=== PATIENT | female | born 1980 | race Caucasian/White ===

== ENCOUNTER 2025-06-18 10:55 | Outpatient (AMB) | payer OTHER, SELFPAY ==
--- NOTE | 2025-06-18 11:17 | AM.OFFWIN_ITS ---
Intake Vital Signs 06/18/25 11:18 Height 5 ft 7 in Weight 212 lb BMI 33.2 BP 132/84 Blood Pressure Location Lt brachial Position Sitting Pulse 85 Pulse Source Pulse Oximeter Temp 98.3 F Temp Source Oral Pulse Oximetry (%) 100 Oxygen Delivery Method Room Air Intake Visit Reasons: [employer] - HS underneath armpit Intake Note: pt presents with HS flare under right armpit x3 wks- h/o HS Allergies codeine Allergy (Intermediate, Verified 06/18/25 11:19) Nausea and Vomiting Do you need a note to return to daycare/school/sports/work: No HPI HPI Comments History of Present Illness Details History of Present Illness - The patient is a 45-year-old female pr esenting with a flare-up of Hidradenitis Suppurativa. - The patient has a long-standing histor y of Hidradenitis Suppurativa, with the current flare-up lasting for three weeks. - The flare-up is characterized by multi ple draining lesions on under both arms, with one lesion significantly increasing in size. - The patient has been on Bimzelx, havin g completed five out of nine doses, with no significant improvement noted yet. - Previous treatment included a seven-da y course of doxycycline, which ended recently. - The patient reports allergic reactions to adhesives, requiring the use of specific bandages for sensitive skin. - The patient experiences significant pa in and has been using ibuprofen and Tylenol for pain management. - The patient has not pursued surgical o ptions due to work commitments and concerns about recovery time. 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 - She has constant burning sharp pain in under the arm pits and has some drainage. - She had some improvement with the Doxy cycline but it was only for 7 days and she thinks that she needs a longer course. - She denies fever, chills, CP, SOB, or bleeding. Physical Exam General: Cooperative, healthy appearing, comfortable, no acute distress but tearful Orientation: Patient oriented x3 Respiratory: Normal respiratory effort and able to speak in complete sentences. Clear to auscultation bilaterally Cardiovascular: Regular rate and rhythm. Normal S1 and S2 Skin: Multiple scars noted in the axilla bilaterally. Open areas noted in the right axilla with some drainage noted and some tissue. Small open area with greenish drainage on the left axilla. No warmth, erythema or odor noted. Neuro: Sensation is intact. Extremities: Normal to inspection. Pain with ROM of the arms bilaterally. Patient was informed and verbally consented to the use of an ambient scribe for clinic note documentation during this visit. Review of Systems Const All systems reviewed & are unremarkable except as noted in HPI and below Physical Exam Vital Signs: Last Vital Signs Temp 98.3 F 06/18/25 11:18 Pulse 85 06/18/25 11:18 BP 132/84 06/18/25 11:18 Pulse Ox 100 06/18/25 11:18 Oxygen Delivery Method Room Air 06/18/25 11:18 BMI result Body Mass Index 33.2 Assessment & Plan Assessment & Plan (1) Hidradenitis suppurativa: Code(s): L73.2 - Hidradenitis suppurativa Plan Most likely Hidradenitis Suppurativa plan - Continue Bimzelx treatment as planned, monitoring for any improvement or adverse effects. - Prescribe Bactroban ointment for topical application to aid in reducing bacterial load and promoting healing. - Prscribed doxycycline for 10 days for ongoing management of infection risk. - Discuss potential referral to a specialized clinic for further management if c urrent treatments do not yield improvement. - gabapentin TID for pain - continue with tylenol or motrin as needed - follow up with PCP and derm Medications: New doxycycline hyclate 100 mg PO BID 20 tabs 0RF 10 days mupirocin 2% 1 appl topical TID 22 grams 0RF gabapentin 100 mg PO TID 42 caps 0RF 14 days Coding Level of Care Code Est Pt Level 3 (49032) Diagnoses Hidradenitis suppurativa L73.2
[2025-06-18 11:18] VITALS: BP 132/84; PULSE 85; TEMP 36.8; O2SAT 100; BMI 33.2
--- OUTSIDE RECORDS SUMMARY | 2025-06-18 13:19 | XMS_ITS | Clinical Summary ---
Author Organization [facility] Address [address] [place] [address] Phone Care Team Providers Care Liquid Chlorine Operator Name Role Phone Meenu Loera MD Primary Care Provider [phone] Allergies Active Allergy Reactions Criticality Noted Date Comments Codeine Nausea And Vomiting 04/01/2017 Medications ibuprofen (ADVIL,MOTRIN) 600 mg tablet Take 1 Tablet by mouth every 8 hours as needed for Pain. 3 Active levonorgestreL (MIRENA) 21 mcg/24 hr (8 yrs) 52 mg IUD by Intrauterine route. Active metFORMIN XR (GLUCOPHAGE-XR) 500 mg 24 hr tablet Take 1 tablet (500 mg total) by mouth 1 (one) time each day. Active spironolactone (ALDACTONE) 50 mg tablet Take 1 Tablet by mouth 3 times daily. Active Cosentyx UnoReady Pen 300 mg/2 mL pen injector 5 Active cholecalciferol (VITAMIN D-3) 50 mcg (2,000 unit) capsule Take 1 capsule (2,000 Units total) by mouth 1 (one) time each day. 5 Active fluticasone propionate (FLONASE) 50 mcg/actuation nasal spray Administer 1 spray into each nostril 2 (two) times a day. Shake gently. Before first use, prime pump. After use, clean tip and replace cap. 48 g 5 Active cetirizine (ZyrTEC) 10 mg tablet Take 1 tablet (10 mg total) by mouth 1 (one) time each day. 90 tablet 5 Active Active Problems Problem Noted Date Diagnosed Date COVID-19 virus infection 10/25/2020 Hidradenitis suppurativa 04/01/2017 Overview (07/06/2024): Mainly in axillae, some in groins/under breasts. On Cosentyx through Dr. Nj Immunizations Name Administration Dates Next Due Moderna Covid-19 Bivalent, O riginal + Ba.1 (Non-US Tradename Spikevax Bivalent) 10/28/2022 Sailogy SARS-CoV-2 COVID-19, mRNA, LNP-S, preservative free 02/03/2022 Tdap Tetanus diptheria acell ular pertussis (Boostrix; Adacel) 7yo and older 02/28/2024,11/07/2007 Surgical History Surgery Date Site/Laterality Comments CHOLECYSTECTOMY 2002 PROCEDURE: HISTORICAL CHOLECYSTECTOMY OTHER SURGICAL HISTORY 09/10/2011 Right PROCEDURE: CA OPTX TIBIAL SHFT FX W/PLATE/SCREWS W/WO CERCLAGE OVARIAN CYST REMOVAL 03/22/2017 Left PROCEDURE: CA OVARIAN CYSTECTOMY UNI/BI SALPINGOOPHORECTOMY 03/22/2017 Left PROCEDURE: CA LAPAROSCOPY W/RMVL ADNEXAL STRUCTURES; [place] [facility] [place] Medical History Medical History Date Comments Hydradenitis DX:Hydradenitis; COMMENT: L breast scars Eczema DX:Eczema Obesity DX:Obesity Family History Medical History Relation Name Comments Hypertension Father diverticulitis Pancreatic cancer Maternal Grandfather Dementia Maternal Grandmother Hypertension Mother thyroid Breast cancer Paternal Grandmother Colon cancer Neg Hx Ovarian cancer Neg Hx Relation Name Status Comments Father Alive Maternal Grandfather Maternal Grandmother Mother Alive Paternal Grandfather Alive Paternal Grandmother Alive Social History Tobacco Use Types Packs/Day Years Used Date Smoking Tobacco: Every Day Cigarettes Smokeless Tobacco: Never Tobacco Cessation:Ready to Q uit: Not Asked; Counseling Given: Not Answered Alcohol Use Standard Drinks/Week Comments Not Asked 0 (1 standard drink = 0.6 oz pur e alcohol) Housing Instability Answer Date Recorde d Are you worried that in the next 2 months you may not have stable housing? No 01/11/2025 Food Access & Nutrition Answer Date Rec orded Do you have access to a vari ety of food including fruits and vegetables? Yes 01/11/2025 Health Literacy Answer Date Recorded How often do you need to hav e someone help you when you read instructions, pamphlets, or other written material from your doctor or pharmacy? Never 01/11/2025 Caregiver: How often do you need to have someone help you when you read instructions, pamphlets, or other written material from your doctor or pharmacy? Not on file 01/11/2025 Financial Risk Answer Date Recorded How hard is it for you to pa y for the very basics like food, housing, medical care, and air conditioning / heating? Not very hard 01/11/2025 Transportation Answer Date Recorded Has the lack of transportati on kept you from meetings, work, or from getting things needed for daily living? No Has the lack of transportati on kept you from medical appointments or from getting medications? No 01/11/2025 Social Isolation Answer Date Recorded How often do you feel lonely or isolated from th ose around you? Never 01/11/2025 Food Risk Answer Date Recorded Within the past 12 months we worried whether our food would run out before we got money to buy more. Never true 01/11/2025 Within the past 12 months th e food we bought just didn't last and we didn't have money to get more. Never true 01/11/2025 Dependent Care Answer Date Recorded Do you need help finding or paying for care for your loved ones. For example, home child care provider or elderly care for an older adult? No 01/11/2025 Education Answer Date Recorded Do you think completing more education or training, like finishing a GED, going to college, or learning a trade, would be helpful for you? No 01/11/2025 Employment and Income Answer Date Recor ded During the last four weeks, have you been actively looking for work? Yes 01/11/2025 Living Situation Answer Date Recorded What is your living situation? 0 01/11/2025 Comments Unknown Sex and Gender Information Value Date Recorded Sex Assigned at Female 12/03/2024 2:17 PM EST Legal Sex Female 9:39 PM EST Gender Identity Female 12/03/2024 2:17 PM EST Sexual Orientation Not on file Obstetrics History Last Filed Vital Signs Vital Sign Reading Time Taken Comments Blood Pressure 116/64 01/15/2025 3:36 PM EDT Pulse 94 01/15/2025 3:36 PM EDT Temperature 36.3 C (97.4 F) 01/15/2025 3:36 PM EDT Respiratory Rate 16 01/15/2025 3:36 PM EDT Oxygen Saturation 97% 01/15/2025 3:36 PM EDT Inhaled Oxygen Concentration - - Weight 99.3 kg (219 lb) 01/15/2025 3:36 PM EDT Height 170.2 cm (5' 7 ) 01/15/2025 3:36 PM EDT Body Mass Index 34.3 01/15/2025 3:36 PM EDT Plan of Treatment Upcoming Encounters Date Type Department Care Team (Late st Contact Info) Description 07/11/2025 11:00 AM EDT Office Visit Adult Medicine [facility] [address] [place] [address] Cindy Lugo PA [address] [place] [address] Health Maintenance Due Date Last Done Comments Breast Cancer Screening 1979 Hepatitis B Vaccines (1 of 3 - 19+ 3-dose series) 1998 Pneumococcal Vaccine: Pediatrics (0 to 5 Years) and At-Risk Patients (6 to 49 Years) (1 of 2 - PCV) 1998 Colorectal Cancer Screening: Colonoscopy 09/12/2022 HIV Screening 09/12/2022 Cervical Cancer Screening: HPV 09/05/2024 09/05/2019 COVID-19 Vaccine ( season) 2025 10/28/2022, 02/03/2022, 08/31/2021, Additional history exists Influenza Vaccine (#1) 2025 Social Influencers of Health Screening 01/11/2026 01/11/2025 Cholesterol Screening (Lipid Panel) 04/02/2030 04/02/2025, 02/28/2024, 02/28/2024 DTaP,Tdap,and Td Vaccines (3 - Td or Tdap) 02/27/2034 02/28/2024, 11/07/2007 Depression Screening Completed 01/11/2025 Hepatitis C Screening Completed 04/02/2025 HIB Vaccines Aged Out No longer eligi ble based on patient's age to complete this topic HPV Vaccines Aged Out No longer eligi ble based on patient's age to complete this topic Hepatitis A Vaccines Aged Out No long er eligible based on patient's age to complete this topic IPV Vaccines Aged Out No longer eligi ble based on patient's age to complete this topic MMR Vaccines Aged Out No longer eligi ble based on patient's age to complete this topic Meningococcal ACWY Vaccine Aged Out N o longer eligible based on patient's age to complete this topic Meningococcal B Vaccine Aged Out No l onger eligible based on patient's age to complete this topic RSV Immunization Patients Under 20 months Aged Out No longer eligible based on patient's age to complete this topic Varicella Vaccines Aged Out No longer eligible based on patient's age to complete this topic Procedures Procedure Name Priority Date/Time Associated Diagnosis Comments CBC WITH AUTO DIFFERENTIAL Routine 04/02/2025 9:35 AM EDT Hidradenitis suppurativa Acute dermatitis Epidermodysplasia verruciformis Pruritus senilis Encounter for long-term (current) use of medications BASIC METABOLIC PANEL Routine 04/02/2025 9:35 AM EDT Hidradenitis suppurativa Acute dermatitis Epidermodysplasia verruciformis Pruritus senilis Encounter for long-term (current) use of medications CBC AND DIFFERENTIAL Routine 04/02/2025 9:35 AM EDT Hidradenitis suppurativa Acute dermatitis Epidermodysplasia verruciformis Pruritus senilis Encounter for long-term (current) use of medications HEPATIC FUNCTION PANEL Routine 04/02/2025 9:35 AM EDT Hidradenitis suppurativa Acute dermatitis Epidermodysplasia verruciformis Pruritus senilis Encounter for long-term (current) use of medications HEPATITIS B SURFACE ANTIGEN WITH CONFIRMATION Routine 04/02/2025 9:35 AM EDT Hidradenitis suppurativa Acute dermatitis Epidermodysplasia verruciformis Pruritus senilis Encounter for long-term (current) use of medications HEPATITIS B CORE ANTIBODY IGM Routine 04/02/2025 9:35 AM EDT Hidradenitis suppurativa Acute dermatitis Epidermodysplasia verruciformis Pruritus senilis Encounter for long-term (current) use of medications LIPID PANEL WITH REFLEX TO DIRECT LDL Routine 04/02/2025 9:35 AM EDT Hidradenitis suppurativa Acute dermatitis Epidermodysplasia verruciformis Pruritus senilis Encounter for long-term (current) use of medications HEPATITIS B SURFACE ANTIBODY Routine 04/02/2025 9:35 AM EDT Hidradenitis suppurativa Acute dermatitis Epidermodysplasia verruciformis Pruritus senilis Encounter for long-term (current) use of medications HEPATITIS C ANTIBODY Routine 04/02/2025 9:35 AM EDT Hidradenitis suppurativa Acute dermatitis Epidermodysplasia verruciformis Pruritus senilis Encounter for long-term (current) use of medications HM HPV Routine 09/05/2019 from Last 3 Months or Most Recently Relevant to Health Maintenance Results * Hepatitis C antibody (04/02/2025 9:35 AM EDT) Pathologist [facility] Hepatitis C Antibody Negative Negative LAB CHEMISTRY METHOD 04/02/2025 9:07 PM EDT [facility] Blood Venous blood specimen / Unknown Venipuncture / Unknown 04/02/2025 9:35 AM EDT 04/02/2025 9:35 AM EDT us Aaron Kurtz MD LAB BLOOD ORDERABLES Final Result [facility] [address] [place] [address], * Hepatitis B surface antigen with reflex to confirmation (04/02/2025 9:35 AM EDT) Hepatitis B Surface Ag Negative Negative LAB CHEMISTRY METHOD 04/02/2025 8:39 PM EDT [facility] Blood Venous blood specimen / Unknown Venipuncture / Unknown 04/02/2025 9:35 AM EDT 04/02/2025 9:35 AM EDT Narrative [facility] - 04/02/2025 8:39 PM EDT Over the counter supplements containing high doses of biotin may interfere with this assay. If interference is suspected, patients shoud be retested after refraining from biotin supplements for 72 hours. us Aaron Kurtz MD LAB BLOOD ORDERABLES Final Result [facility] [address] [place] [address], [place] [phone] * (ABNORMAL) Lipid panel with reflex to direct LDL (04/02/2025 9:35 AM EDT) Cholesterol 233(H) 0 - 200 mg/dL LAB CHEMISTRY METHOD 04/02/2025 8:05 PM [facility] Triglycerides 174(H) 0 - 150 mg/dL LAB CHEMISTRY METHOD 04/02/2025 8:05 PM [facility] HDL 40 >=40 mg/dL LAB CHEMISTRY METHOD 04/02/2025 8:05 PM [facility] LDL Calculated 158(H) 0 - 100 mg/dL LAB CHEMISTRY METHOD 04/02/2025 8:05 PM [facility] VLDL Cholesterol Saad 34.8 mg/dL LAB CHEMISTRY METHOD 04/02/2025 8:05 PM [facility] Non HDL Chol. (LDL+VLDL) 193(H) <145 mg/dL LAB CHEMISTRY METHOD 04/02/2025 8:05 PM [facility] Chol/HDL Ratio 5.8(H) 0.0 - 4.4 LAB CHEMISTRY METHOD 04/02/2025 8:05 PM [facility] Blood Venous blood specimen / Unknown Venipuncture / Unknown 04/02/2025 9:35 AM EDT 04/02/2025 9:35 AM EDT Aaron Kurtz MD LAB BLOOD ORDERABLES Final Result [facility] [address] [place] [address], * (ABNORMAL) CBC auto differential (04/02/2025 9:35 AM EDT) WBC 11.7(H) 4.8 - 10.8 K/mcL LAB HEMETOLOGY METHOD 04/02/2025 12:31 PM EDT [facility] RBC 4.20 3.80 - 4.80 M/mcL LAB HEMETOLOGY METHOD 04/02[facility]25 12[facility] Hemoglobin 12.1 11.5 - 16.0 g/dL LAB HEMETOLOGY METHOD 04/02/2025 12:31 PM [facility] Hematocrit 37.3 35.0 - 47.0 % LAB HEMETOLOGY METHOD 04/02/2025 12:31 PM [facility] MCV 89.4 79.0 - 98.0 FL LAB HEMETOLOGY METHOD 04/02/2025 12:[facility] MCH 29.0 27.0 - 32.0 pcg LAB HEMETOLOGY METHOD 04/02/2025 12:31 PM [facility] MCHC 32.4 32.0 - 37.0 g/dL LAB HEMETOLOGY METHOD 04/02/2025 12:31 PM [facility] RDW 14.4 11.0 - 15.0 % LAB HEMETOLOGY METHOD 04/02/2025 12:31 PM [facility] Platelets 417(H) 130 - 400 K/mcL LAB HEMETOLOGY METHOD 04/02/2025 12:[facility] MPV 9.9 7.0 - 11.0 FL LAB HEMETOLOGY METHOD 04/02/2025 12:31 PM [facility] NRBC 0.0 <1.0 % LAB HEMETOLOGY METHOD 04/02/2025 12:[facility] NRBC Absolute 0.00 <0.10 K/mcL LAB HEMETOLOGY METHOD 04/02/2025 12:31 PM [facility] Neutrophils Relative 67.7 % LAB HEMETOLOGY METHOD 04/02/2025 12:31 PM [facility] Lymphocytes Relative 21.7 % LAB HEMETOLOGY METHOD 04/02/2025 12:31 PM [facility] Monocytes Relative 5.7 % LAB HEMETOLOGY METHOD 04/02/2025 12:31 PM [facility] Eosinophils Relative 3.7 % LAB HEMETOLOGY METHOD 04/02/2025 12:31 PM [facility] Basophils Relative 0.7 % LAB HEMETOLOGY METHOD 04/02/2025 12:31 PM [facility] Immature Granulocytes Relative 0.5 % LAB HEMETOLOGY METHOD 04/02/2025 12:31 PM [facility] Neutrophils Absolute 7.94(H) 1.50 - 7.00 K/mcL LAB HEMETOLOGY METHOD 04/02/2025 12:31 PM [facility] Lymphocytes Absolute 2.55 1.00 - 5.00 K/mcL LAB HEMETOLOGY METHOD 04/02/2025 12:31 PM [facility] Monocytes Absolute 0.67 0.20 - 1.00 K/mcL LAB HEMETOLOGY METHOD 04/02/2025 12:31 PM [facility] Eosinophils Absolute 0.44 0.00 - 0.50 K/[facility] LAB HEMETOLOGY METHOD 04/02/2025 12:31 PM EDT [facility] Basophils Absolute 0.08 0.00 - 0.20 K/[facility] LAB HEMETOLOGY METHOD 04/02/2025 12:31 PM EDT [facility] Immature Granulocytes Absolute 0.06(H) 0.00 - 0.03 K/[facility] LAB HEMETOLOGY METHOD 04/02/2025 12:31 PM EDT [facility] Blood Venous blood specimen / Unknown Venipuncture / Unknown 04/02/2025 9:35 AM EDT 04/02/2025 9:35 AM EDT Aaron Kurtz MD LAB BLOOD ORDERABLES Final Result Performing Organization Address [facility]/ZIP Co de Phone Number [facility] [address] [place] [address], [place] [phone] * Hepatitis B core antibody IgM (04/02/2025 9:35 AM EDT) Hep B Core IgM Negative Negative LAB CHEMISTRY METHOD 04/02/2025 9:07 PM EDT [facility] Blood Venous blood specimen / Unknown Venipuncture / Unknown 04/02/2025 9:35 AM EDT 04/02/2025 9:35 AM EDT Narrative [facility] - 04/02/2025 9:07 PM EDT Over the counter supplements containing high doses of biotin may interfere with this assay. If interference is suspected, patients shoud be retested after refraining from biotin supplements for 72 hours. us Aaron Kurtz MD LAB BLOOD ORDERABLES Final Result Performing Organization Address [facility]/ZIP Co de Phone Number [facility] [address] [place] [address], * Hepatitis B surface antibody (04/02/2025 9:35 AM EDT) Pathologist [facility] Hepatitis B Surface Ab Negative Negative LAB CHEMISTRY METHOD 04/02/2025 8:28 PM EDT [facility] Hepatitis B Surface Ab Quantitative <3.1 mIU/mL LAB CHEMISTRY METHOD 04/02/2025 8:28 PM EDT [facility] Blood Venous blood specimen / Unknown Venipuncture / Unknown 04/02/2025 9:35 AM EDT 04/02/2025 9:35 AM EDT Narrative [facility] - 04/02/2025 8:28 PM EDT >=10 mIU/mL is considered to be consistent with immunity. Aaron Kurtz MD LAB BLOOD ORDERABLES Final Result [facility] [address] [place] [address], * (ABNORMAL) Hepatic function panel (04/02/2025 9:35 AM EDT) Pathologist [facility] Total Protein 8.3(H) 6.0 - 8.0 g/dL LAB CHEMISTRY METHOD 04/02/2025 8:05 PM EDT [facility] Albumin 3.6 3.2 - 5.0 g/dL LAB CHEMISTRY METHOD 04/02/2025 8:05 PM EDT [facility] Total Bilirubin 0.5 0.0 - 1.4 mg/dL LAB CHEMISTRY METHOD 04/02/2025 8:05 PM [facility] Bilirubin, Direct 0.1 0.0 - 0.3 mg/dL LAB CHEMISTRY METHOD 04/02/2025 8:05 PM T [facility] Bilirubin, Indirect 0.4 0.0 - 1.1 mg/dL LAB CHEMISTRY METHOD 04/02/2025 8:05 PM EDT [facility] ALT (SGPT) 24 10 - 60 unit/L LAB CHEMISTRY METHOD 04/02/2025 8:05 PM [facility] AST (SGOT) 16 10 - 42 unit/L LAB CHEMISTRY METHOD 04/02/2025 8:05 PM [facility] Alkaline Phosphatase 93 42 - 121 unit/L LAB CHEMISTRY METHOD 04/02/2025 8:05 PM [facility] Blood Venous blood specimen / Unknown Venipuncture / Unknown 04/02/2025 9:35 AM EDT 04/02/2025 9:35 AM EDT Aaron Kurtz MD LAB BLOOD ORDERABLES Final Result [facility] [address] [place] [address], [place] [phone] * (ABNORMAL) Basic metabolic panel (04/02/2025 9:35 AM EDT) Sodium 139 133 - 145 mmol/L LAB CHEMISTRY METHOD 04/02/2025 8:05 PM [facility] Potassium 4.7 3.5 - 5.5 mmol/L LAB CHEMISTRY METHOD 04/02/2025 8:05 PM [facility] Chloride 109 96 - 110 mmol/L LAB CHEMISTRY METHOD 04/02/2025 8:05 PM [facility] CO2 21 21 - 32 mmol/L LAB CHEMISTRY METHOD 04/02/2025 8:05 PM [facility] Anion Gap 9 3 - 11 LAB CHEMISTRY METHOD 04/02/2025 8:05 PM [facility] Glucose 111(H) 70 - 100 mg/dL LAB CHEMISTRY METHOD 04/02/2025 8:05 PM [facility] BUN 23 5 - 25 mg/dL LAB CHEMISTRY METHOD 04/02/2025 8:05 PM [facility] Creatinine 1.19(H) 0.50 - 1.10 mg/dL LAB CHEMISTRY METHOD 04/02/2025 8:05 PM EDT [facility] eGFR 58(L) >=60 mL/min/1. 73m2 LAB CHEMISTRY METHOD 04/02/2025 8:05 PM EDT [facility] Comment:Calculation based on the Chronic Kidney Disease Epidemiology Collaboration (CKD-EPI) equation refit without adjustment for race. BUN/Creatinine Ratio 19.3 LAB CHEMISTRY METHOD 04/02/2025 8:05 PM EDT [facility] Calcium 9.1 8.5 - 10.5 mg/dL LAB CHEMISTRY METHOD 04/02/2025 8:05 PM EDT [facility] Blood Venous blood specimen / Unknown Venipuncture / Unknown 04/02/2025 9:35 AM EDT 04/02/2025 9:35 AM EDT Aaron Kurtz MD LAB BLOOD ORDERABLES Final Result [facility] [address] [place] [address], * Cervical Cancer Screening: HPV (09/05/2019) [facility] Cervical Cancer Screening: HPV negative, abstracted Historical Provider HEALTH MAINTENANCE Final Result from Last 3 Months or Most Recently Relevant to Health Maintenance Insurance [employer] Care Teams Liquid Chlorine 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
--- OUTSIDE RECORDS SUMMARY | 2025-06-18 13:19 | XMS_ITS ---
Author Name [facility] Organization Unknown Care Team Organization Name Specialty Phone Email Start Date End Da te [facility] Meenu Loera Primary Care 06/17/2023 4 [facility] BRANDT DELVALLE Primary Care 08/18/2022 05/29/20 24
== END 2025-06-18 12:39 | disposition home or self-care (01) ==
PROVIDERS: PCP Internal Medicine; Visit Provider Physician Assistant Medical
DX: L73.2 Hidradenitis suppurativa (principal)

== ENCOUNTER → 2025-06-18 10:55 | Outpatient (BNVA) | payer OTHER, SELFPAY | PROVIDERS: PCP Internal Medicine; Visit Provider Physician Assistant Medical | DX: L73.2 Hidradenitis suppurativa (principal) | CPT/HCPCS: 99212 ==